=== PATIENT | male | born 1940 ===

== ENCOUNTER → 2021-07-02 | Outpatient (CLI) | payer OTHER ==
[~2021-07-02] MED LIST: ATEN50 PO; OMEP40CA12 PO
== END ==
LOC: LAB SHORT 08:17
DX: D48.5 Neoplasm of uncertain behavior of skin (principal)
CPT/HCPCS: 88341; 88342

== ENCOUNTER 2023-02-02 10:06 | Observation (INO) | payer OTHER ==
[~2023-02-02] VITALS: Ht 177.8 cm; Wt 100.9 kg
[2023-02-02] MEDS ORDERED: SYNJARDY XR 251 EAC1 PO (10:27)
[2023-02-02] MEDS ORDERED: FURO20 PO (10:27)
[2023-02-02] MEDS ORDERED: Crestor20 MG PO (10:27)
[2023-02-02] MEDS ORDERED: THERA-D2000 UNIT PO (10:28)
[2023-02-02] MEDS ORDERED: HYDRA50 PO (10:28)
[2023-02-02] MEDS ORDERED: METO50ER PO (10:28)
[2023-02-02] MEDS ORDERED: PANT40 PO (10:28)
[2023-02-02] MEDS ORDERED: LISI20 PO (10:28)
[2023-02-02] MEDS ORDERED: POTA10T PO (10:29)
[2023-02-02] MEDS ORDERED: Isosorbide Mono30 MG PO (10:29)
[2023-02-02] MEDS ORDERED: AMLO10 PO (10:29)
[2023-02-02] MEDS ORDERED: EZET10 PO (10:29)
[2023-02-02] MEDS ORDERED: GUAI600T33 PO (10:29)
[2023-02-02 10:33] LABS: BASOPHILS ABSOLUTE AUTO 0.05 K/mm3 (0.00-0.23); BASOPHILS PERCENT AUTO 1 % (0-2); EOSINOPHILS ABSOLUTE AUTO 0.79 K/mm3 (0.00-0.68); EOSINOPHILS PERCENT AUTO 10 % (0-6); Hematocrit 41.6 % (37.0-53.0); Hemoglobin 14.7 g/dL (13.5-17.5); IMMATURE GRAN ABSOLUTE AUTO 0.03 K/mm3 (0.00-0.10); IMMATURE GRAN PERCENT AUTO 0 % (0-1); LYMPHOCYTES ABSOLUTE AUTO 2.65 K/mm3 (0.84-5.20); LYMPHOCYTES PERCENT AUTO 34 % (21-46); MONOCYTES ABSOLUTE AUTO 0.72 K/mm3 (0.16-1.47); MONOCYTES PERCENT AUTO 9 % (4-13); Mean Corpuscular HGB 30.9 pg (26.0-34.0); Mean Corpuscular HGB Conc 35.3 g/dL (31.5-36.5); Mean Corpuscular Volume 88 fL (80-100); Mean Platelet Volume 10.8 fL (9.1-12.4); NEUTROPHILS ABSOLUTE AUTO 3.64 K/mm3 (1.96-9.15); NEUTROPHILS PERCENT AUTO 46 % (41-73); Platelet Count 142 K/mm3 (150-400); RDW Coefficient Variation 13.2 % (11.7-14.2); RDW Standard Deviation 42.5 fL (35.1-46.3); Red Blood Cell Count 4.75 M/mm3 (4.30-5.90); White Blood Cell Count 7.88 K/mm3 (4.00-11.30)
[2023-02-02 10:51] LABS: Albumin, Blood 3.8 g/dL (3.4-5.0); Albumin/Globulin Ratio 1.2 (0.8-1.8); Bilirubin, Total 0.8 mg/dL (0.1-1.0); Bun/Creatinine Ratio 22.6 (12.0-20.0); Calcium, Blood 9.3 mg/dL (8.5-10.1); Creatinine, Blood 1.37 mg/dL (0.60-1.20); Globulin, Blood 3.3 g/dL (2.2-4.0); Magnesium, Blood 2.3 mg/dL (1.6-2.4); Potassium, Blood 3.8 mmol/L (3.5-5.5); Total Protein, Blood 7.1 g/dL (6.4-8.2)
[2023-02-02 14:53] VITALS: BP 136/78
--- NOTE | 2023-02-02 16:36 | NUR ---
PT ARRIVED FROM ED. ORIENTED TO THE ROOM PROVIDED WATER AND A SNACK. FAMILY AT BEDSIDE. EDUCATED ON FIRE SAFTY.
[2023-02-02 19:22] VITALS: BP 137/71
[2023-02-03 02:21] VITALS: BP 130/74
[2023-02-03 05:08] LABS: BASOPHILS ABSOLUTE AUTO 0.05 K/mm3 (0.00-0.23); BASOPHILS PERCENT AUTO 1 % (0-2); EOSINOPHILS ABSOLUTE AUTO 0.72 K/mm3 (0.00-0.68); EOSINOPHILS PERCENT AUTO 10 % (0-6); Hematocrit 42.7 % (37.0-53.0); Hemoglobin 14.8 g/dL (13.5-17.5); IMMATURE GRAN ABSOLUTE AUTO 0.03 K/mm3 (0.00-0.10); IMMATURE GRAN PERCENT AUTO 0 % (0-1); LYMPHOCYTES ABSOLUTE AUTO 1.95 K/mm3 (0.84-5.20); LYMPHOCYTES PERCENT AUTO 26 % (21-46); MONOCYTES ABSOLUTE AUTO 0.77 K/mm3 (0.16-1.47); MONOCYTES PERCENT AUTO 10 % (4-13); Mean Corpuscular HGB 30.8 pg (26.0-34.0); Mean Corpuscular HGB Conc 34.7 g/dL (31.5-36.5); Mean Corpuscular Volume 89 fL (80-100); Mean Platelet Volume 11.2 fL (9.1-12.4); NEUTROPHILS ABSOLUTE AUTO 3.98 K/mm3 (1.96-9.15); NEUTROPHILS PERCENT AUTO 53 % (41-73); Platelet Count 133 K/mm3 (150-400); RDW Coefficient Variation 13.1 % (11.7-14.2); RDW Standard Deviation 42.9 fL (35.1-46.3); Red Blood Cell Count 4.81 M/mm3 (4.30-5.90)
[2023-02-03 06:23] LABS: Albumin, Blood 3.4 g/dL (3.4-5.0); Albumin/Globulin Ratio 1.1 (0.8-1.8); Bilirubin, Total 0.7 mg/dL (0.1-1.0); Bun/Creatinine Ratio 24.1 (12.0-20.0); Calcium, Blood 9.1 mg/dL (8.5-10.1); Creatinine, Blood 1.41 mg/dL (0.60-1.20); Globulin, Blood 3.1 g/dL (2.2-4.0); Potassium, Blood 3.8 mmol/L (3.5-5.5); Total Protein, Blood 6.5 g/dL (6.4-8.2)
--- NOTE | 2023-02-03 06:25 | NUR ---
Shift Summary Pt here for severe L arm pain and chest pressure, observation and cardiac testing. Part 2 of his stress test is planned to take place today. Pt has had no caffiene and will be NPO for more than 4 hours before the test. Pt is independent in the room, AOx4, continent, on tele running SR around 65. No c/o of chest or arm pain t/o the night, slept well, cooperative with care.
[2023-02-03 08:07] VITALS: BP 140/71
[2023-02-03 14:43] VITALS: BP 137/59
--- NOTE | 2023-02-03 18:44 | NUR ---
DISCHARGE INSTRUCTIONS PROVIDED TO PT. PT'S SON IN THE ROOM TO TRANSPORT PT HOME VIA PERSONAL VEHICLE. PT DENIES ANY QUESTIONS OR CONCERNS. PT ELECTED TO AMBULATE INDEPENDENTLY FROM HIS HOSPITAL ROOM.
== END 2023-02-03 18:41 | disposition home or self-care (01) ==
LOC: ER 10:06 → MEDS 10:07
PROVIDERS: Student in an Organized Health Care Education/Training Program; ADMIT Student in an Organized Health Care Education/Training Program
DX: M79.622 Pain in left upper arm (principal); I25.10 Atherosclerotic heart disease of native coronary artery without angina pectoris; E11.9 Type 2 diabetes mellitus without complications; G25.81 Restless legs syndrome; K22.70 Barrett's esophagus without dysplasia; F32.A Depression, unspecified; I25.2 Old myocardial infarction; M54.50 Low back pain, unspecified; G89.29 Other chronic pain; Z88.2 Allergy status to sulfonamides; Z88.8 Allergy status to other drugs, medicaments and biological substances; Z95.1 Presence of aortocoronary bypass graft; Z95.5 Presence of coronary angioplasty implant and graft
CPT/HCPCS: 36415; 71046; 78452; 80053; 83735; 83880; 84443; 84484; 85025; 93017; 93306; 96372; 96374; 99285-25; A9270; A9500; G0378; J0280; J1650; J2270; J2785

== ENCOUNTER → 2023-10-18 | Outpatient (CLI) | payer OTHER | END | disposition home or self-care (01) | LOC: LAB SHORT 18:18 → LAB 18:18 | DX: R07.9 Chest pain, unspecified (principal) ==